=== PATIENT | male | born 1990 | race Caucasian/White ===

== ENCOUNTER 2021-11-04 17:12 | Emergency (ER) | payer BC ==
[~2021-11-04] VITALS: Ht 185.4 cm; Wt 136.1 kg
== END 2021-11-04 22:20 | disposition home or self-care (01) ==
LOC: ER1 17:12
DX: U07.1 COVID-19 (principal); Z23 Encounter for immunization; I10 Essential (primary) hypertension; Z88.6 Allergy status to analgesic agent
CPT/HCPCS: 87081; 87880; 99283; M0243; U0002